=== PATIENT | male | born 1960 | race Caucasian/White ===

== ENCOUNTER 2023-09-30 21:34 | Outpatient (REF) | payer MEDICARE, MEDICAID, SELFPAY | END 2023-09-30 21:35 | disposition home or self-care (01) | LOC: LBN 21:34 | PROVIDERS: Visit Provider Physician Assistant | DX: N39.0 Urinary tract infection, site not specified (principal); R30.0 Dysuria | CPT/HCPCS: 87077; 87086; 87186 ==

== ENCOUNTER 2024-03-28 03:17 | Outpatient (CLI) | payer MEDICARE, MEDICAID, SELFPAY ==
[2024-03-28 11:46] LABS: Abs Immature Grans 0.04 10^3/uL (0.0-0.06); Absolute Basophil Count 0.01 10^3/uL (0.0-0.2); Absolute Eosinophil Count 0.16 10^3/uL (0.0-0.7); Absolute Lymphocyte Count 2.75 10^3/uL (1.2-3.4); Absolute Monocyte Count 0.59 10^3/uL (0.1-0.8); Absolute Neutrophil Count 4.25 10^3/uL (1.2-6.7); Basophils % 0.1 %; Eosinophils % 2.1 %; HCT 45.1 % (40.0-50.0); HGB 15.5 g/dL (13.5-17.5); Immature Grans % 0.5 %; Lymphocytes % 35.3 %; MCH 31.8 pg (27.0-33.0); MCHC 34.4 % (32.0-36.0); MCV 92 fL (80-95); MPV 9.5 fL (8.0-11.0); Monocytes % 7.6 %; Neutrophils % 54.4 %; Platelet Count 253 10^3/uL (130-400); RBC 4.88 10^6/uL (4.36-5.78); RDW 13.5 % (11.8-14.1); RDW-SD 46.2 fL
[2024-03-28 11:54] LABS: Hemoglobin A1C 5.8 % (<5.7)
[2024-03-28 12:27] LABS: ALT 26 U/L (16-63); AST 20 U/L (15-37); Albumin 3.8 g/dL (3.4-5.0); Alkaline Phosphatase 88 U/L (46-116); Anion Gap 10.9 mmol/L (3-11); BUN 9 mg/dL (7-18); Bilirubin, Total 0.59 mg/dL (0.2-1.0); CO2 24.1 mmol/L (21.0-32.0); CREATININE 1.1 mg/dL (0.70-1.30); Calcium 9.3 mg/dL (8.5-10.1); Calculated LDL 82 mg/dL (<100); Chloride 108 mmol/L (98-107); Cholesterol 139 mg/dL (<200); Estimated GFR 76.37 (mL/min/1.73m2); Glucose 111 mg/dL (74-106); HDL Cholesterol 34 mg/dL (40-60); Potassium 3.8 mmol/L (3.5-5.1); Sodium 143 mmol/L (136-145); TSH 2.51 uIU/mL (0.36-3.74); Total Protein 7.9 g/dL (6.4-8.2); Triglyceride 118 mg/dL (<150); Vitamin D 25 Total 28.7 ng/mL (30-100)
[2024-03-28 12:43] LABS: FREE T4 1.19 ng/dL (0.76-1.46)
== END 2024-03-28 03:18 | disposition home or self-care (01) ==
LOC: LBO 03:18
PROVIDERS: Visit Provider Registered Nurse
DX: Z51.81 Encounter for therapeutic drug level monitoring (principal); F41.1 Generalized anxiety disorder; F20.3 Undifferentiated schizophrenia
CPT/HCPCS: 36415; 80053; 80061; 82306; 83036; 84439; 84443; 85025

== ENCOUNTER 2024-04-14 16:14 | Outpatient (REF) | payer MEDICARE, MEDICAID, SELFPAY ==
[2024-04-14 16:33] LABS: TSH (W/Ref FT4) 0.94 uIU/mL (0.36-3.74)
[2024-04-14 17:03] LABS: Calculated LDL 77 mg/dL (<100); Cholesterol 148 mg/dL (<200); HDL Cholesterol 31 mg/dL (40-60); Triglyceride 201 mg/dL (<150)
[2024-04-14 17:12] LABS: Hemoglobin A1C 5.8 % (<5.7)
== END 2024-04-14 16:15 | disposition home or self-care (01) ==
LOC: NCHCN 16:14
PROVIDERS: Visit Provider Student in an Organized Health Care Education/Training Program
DX: E03.9 Hypothyroidism, unspecified (principal); E11.9 Type 2 diabetes mellitus without complications; Z13.220 Encounter for screening for lipoid disorders
CPT/HCPCS: 80061; 83036; 84443

== ENCOUNTER 2024-06-20 02:06 | Outpatient (CLI) | payer MEDICARE, MEDICAID, SELFPAY ==
--- NOTE | 2024-06-20 | DI.CTLCSR_ITS ---
Exam(s) CT CHEST LUNG CANCER SCREEN EXAM: CT CHEST LUNG CANCER SCREEN CLINICAL HISTORY: Tobacco dependence, F17.210-nicotine dependence, cigarettes; screening TECHNIQUE: Imaging Protocol: Axial computed tomography images with coronal and sagittal reformatted images were created and reviewed. Lung Computer Aided Detection (CAD) was utilized. COMPARISON: CT CT CHEST LOW DOSE LUNG SHORT TERM FOLLOW UP from 06/11/[address] ANGIO CHEST PE PROTOCOL from 06/14/2023 FINDINGS: Tracheobronchial tree: Patent where visualized. No bronchiectasis. Pulmonary parenchyma: Moderate emphysematous changes are present in the lungs. There is scarring in the right lung apex. No focal consolidating infiltrates are seen. Lung Nodules: None. Mediastinum and Monica: No dominant adenopathy or fluid collection. The esophagus is unremarkable.There is a small hiatal hernia. Lymph nodes: Unremarkable. Pleura: No effusion or pneumothorax. Heart: The heart is not dilated. Mild coronary artery calcifications are present. No pericardial effu lisandra. Aorta: Thoracic aorta non-dilated.Atherosclerotic calcification is present. Upper abdomen: Unremarkable. Soft Tissues: Unremarkable. Bones: Age-appropriate degenerative changes are present. IMPRESSION: No suspicious pulmonary nodules are present. Lung RADS Cat 1 - Negative: No nodules and definitely benign nodules Lung-RADS 1.0 CATEGORIES: Category 0 - Prior chest CT exam(s) being located for comparison. Category 1 - Annual screening in 12 months. No nodules or definitely benign nodules. Category 2 - Annual screening in 12 months. Benign appearance. Nodules with low likelihood of becomin g active cancer. Category 3 - 6-month follow-up. Probably benign. Short-term follow-up suggested. Nodules with low lik elihood of becoming active cancer. Category 4A - 3-month follow-up and CT/PET if >8 mm in size. Suspicious finding. Findings which requi re additional testing. Category 4B - Findings which require additional testing and tissue sampling. Suspicious finding. Category 4X - Category 3 or 4 nodules with additional features or imaging findings that increases the suspicion of malignancy. Modifier S- Potentially clinically significant finding. (Non lung cancer) RADIATION DOSE DELIVERED: 88.51mGy.cm Total DLP 88.51mGy.cmTotal DLP DATA REPOSITORY: All CT scans at this facility are submitted to the National Radiology Data Registry (NRDR) Dose Index Registry (DIR) with the [employer] ([employer]). RADIATION OPTIMIZATION: All CT scans at this facility use at least one of these dose optimization te chniques: automated exposure control; mA and/or kV adjustment per patient size (includes targeted exa ms where dose is matched to clinical indication); or iterative reconstruction.
== END 2024-06-20 02:26 ==
PROVIDERS: PCP Student in an Organized Health Care Education/Training Program; Visit Provider Student in an Organized Health Care Education/Training Program
DX: F17.210 Nicotine dependence, cigarettes, uncomplicated (principal); Z12.2 Encounter for screening for malignant neoplasm of respiratory organs
CPT/HCPCS: 71271

== ENCOUNTER 2024-08-31 14:20 | Outpatient (REF) | payer MEDICARE, MEDICAID, SELFPAY ==
[2024-08-31 17:00] LABS: Microalb ug/mg Crea 16.3 ug/mg Cr
== END 2024-08-31 14:21 | disposition home or self-care (01) ==
LOC: NCHCN 14:20
PROVIDERS: PCP Student in an Organized Health Care Education/Training Program; Visit Provider Student in an Organized Health Care Education/Training Program
DX: E11.9 Type 2 diabetes mellitus without complications (principal)
CPT/HCPCS: 82043; 82570

== ENCOUNTER 2024-12-02 13:33 | Outpatient (REF) | payer MEDICARE, MEDICAID, SELFPAY ==
[2024-12-02 15:59] LABS: Abs Immature Grans 0.03 10^3/uL (0.0-0.06); HCT 44.8 % (40.0-50.0); HGB 15.1 g/dL (13.5-17.5); Immature Grans % 0.4 %; MCH 31.7 pg (27.0-33.0); MCHC 33.7 % (32.0-36.0); MCV 94 fL (80-95); MPV 9.8 fL (8.0-11.0); Platelet Count 225 10^3/uL (130-400); RBC 4.77 10^6/uL (4.36-5.78); RDW 12.5 % (11.8-14.1); RDW-SD 43.2 fL; WBC 7.16 10^3/uL (4.4-10.8)
[2024-12-02 16:23] LABS: ALT 31 U/L (16-63); AST 21 U/L (15-37); Albumin 4.1 g/dL (3.4-5.0); Alkaline Phosphatase 82 U/L (46-116); Anion Gap 7.0 mmol/L (3-11); BUN 10 mg/dL (7-18); Bilirubin, Total 0.6 mg/dL (0.2-1.0); CO2 28.0 mmol/L (21.0-32.0); Calcium 9.3 mg/dL (8.5-10.1); Chloride 106 mmol/L (98-107); Estimated GFR 68.38 (mL/min/1.73m2); Glucose 100 mg/dL (74-106); Magnesium 2.2 mg/dL (1.8-2.4); Potassium 4.0 mmol/L (3.5-5.1); Sodium 141 mmol/L (136-145); TSH 1.28 uIU/mL (0.36-3.74); Total Protein 7.4 g/dL (6.4-8.2)
== END 2024-12-02 13:34 | disposition home or self-care (01) ==
LOC: NCHCN 13:33
PROVIDERS: PCP Student in an Organized Health Care Education/Training Program; Visit Provider Student in an Organized Health Care Education/Training Program
DX: E03.8 Other specified hypothyroidism (principal); R42 Dizziness and giddiness
CPT/HCPCS: 80053; 83735; 84439; 84443; 85025